=== PATIENT | female | born 1940 | race Caucasian/White ===

== ENCOUNTER 2016-05-10 16:36 | Emergency (ER) | payer OTHER, MEDICARE ==
[2016-05-10 16:52] VITALS: BP 135/82; PULSE 73; RESP 16; TEMP 97.9; O2SAT 96
--- NOTE | 2016-05-10 18:36 | UCPHY ---
H & P Time Seen by Provider: 05/10/16 17:04 Patient Type: Established HPI/ROS: This patient sustained a left 2nd finger laceration from a knife at home when she slipped with a knife. She reports mild pain to the dorsum of the 2nd finger at the site of the laceration. She has no other associated symptoms. ROS: No numbness or tingling. No difficulty moving the finger. 5 point ROS is otherwise negative. Smoking Status: Never smoked Physical Exam: Physical Exam Vital signs are normal. General: No acute distress Cardiac: Brisk capillary refill is intact throughout. Skin: No rash or pallor. Extremities: Atraumatic normal except for left 2nd finger Left 2nd finger: Notable for a 2 cm full-thickness laceration to the dorsum of the finger crossing the PIP joint. There is mild bleeding. No foreign bodies and direct examination. No tendon injury or other deeper structures injured. She maintains full range of motion. Neuro: No sensory motor deficit in the affected finger. Constitutional: Initial Vital Signs Temperature (C) 36.6 C 05/10/16 16:49 Heart Rate 73 05/10/16 16:49 Respiratory Rate 16 05/10/16 16:49 Blood Pressure 135/82 H 05/10/16 16:49 O2 Sat (%) 96 05/10/16 16:49 O2 Delivery Mode Room Air Allergies/Adverse Reactions: Sulfa (Sulfonamide Antibiotics) Allergy (Unknown, Verified 05/10/16 16:49) Hives Home Medications: Medication Instructions Recorded SYNTHROID 01/19/10 LISINOPRIL 04/15/11 Requip 11/25/13 MDM/Departure - [facility] Procedures: Digital block: After verbal consent, using a 50 50 mix of 0.5% Marcaine 2% plain lidocaine, 27 gauge needle, chlorhexidine scrub under sterile conditions- 3 injections were administered to the base of the affected finger, 8 mL with good effect. Patient tolerated this well. There were no complications. The wound is 2 cm full-thickness. The wound was copiously irrigated with saline. The wound was explored for foreign bodies and none were found. The wound was prepped and draped in the normal sterile fashion. The edges were reapproximated using 4 0 Ethilon-7 sutures with good hemostasis and cosmesis. The patient tolerated the procedure well. There were no complications. Patient is placed in a dressing and we counseled regarding wound care. - Depart Disposition: Home, Routine, Self-Care Clinical Impression: Finger laceration Qualifiers: Encounter type: initial encounter Qualified Code(s): S61.219A - Laceration without foreign body of unspecified finger without damage to nail, initial encounter Condition: Good Instructions: Finger Laceration (ED) Additional Instructions: Diagnosis: Finger laceration Plan: Keep the wound clean and dry for the next 2 days. Then clean wound daily with warm soapy water Return for suture removal in 10-12 days Tylenol for discomfort if needed. Return sooner for recheck if he develops redness discharge or other concerns for infection. Referrals: Mayuri Washington [Primary Care Provider] - As per Instructions - PQRS PQRS Measurement: 134: Depression screening and followup, PRIME MD-PHQ2 (12 years and older) Over the last 2 weeks, how often have you been bothered by any of the following problems? 1. Feeling down, depressed, or hopeless? 2. Little interest or pleasure in doing things? Patient answered no to both 1 and 2 130: Documentation of medications. Reviewed all patient medications, doses, route and frequency. 226: Do you smoke? [No.] 47: 65 and older: Advanced care planning. Patient designates surrogate decision maker as spouse. 51: 18 years old and older with diagnosis of COPD, spirometry performance. NA 52: 18 years old and older with COPD and symptoms of COPD or FEV1<60% predicted prescribed a B Agonist. NA
== END 2016-05-10 18:40 | disposition home or self-care (01) ==
LOC: CED 16:36
PROC: 0HQGXZZ Repair Left Hand Skin, External Approach (ICD-10-PCS; principal; 2016-05-10)
DX: S61.211A Laceration without foreign body of left index finger without damage to nail, initial encounter (principal); W26.0XXA Contact with knife, initial encounter; Y92.019 Unspecified place in single-family (private) house as the place of occurrence of the external cause
CPT/HCPCS: 12001; G0463; 99213-PO

== ENCOUNTER → 2016-09-06 | Outpatient (CLI) | payer OTHER, MEDICARE | LOC: CIMAGING 12:10 | DX: Z12.31 Encounter for screening mammogram for malignant neoplasm of breast (principal); Z80.3 Family history of malignant neoplasm of breast | CPT/HCPCS: G0202 ==

== ENCOUNTER → 2017-06-06 | Outpatient (CLI) | payer OTHER, MEDICARE | LOC: FIMAGING 10:09 | PROVIDERS: ATTEND Family Medicine | DX: Z13.820 Encounter for screening for osteoporosis (principal); M81.0 Age-related osteoporosis without current pathological fracture ==

== ENCOUNTER → 2017-09-25 | Outpatient (CLI) | payer OTHER, MEDICARE | LOC: CIMAGING 08:31 | PROVIDERS: ATTEND Family Medicine | DX: Z12.31 Encounter for screening mammogram for malignant neoplasm of breast (principal); Z80.3 Family history of malignant neoplasm of breast ==